=== PATIENT | female | born 1990 | race Caucasian/White ===

== ENCOUNTER 2016-10-05 21:05 | Emergency (ER) | payer OTHER, MEDICAID ==
[2016-10-05 21:09] VITALS: BP 107/64; PULSE 55; RESP 16; TEMP 98.4; O2SAT 99
--- NOTE | 2016-10-05 21:38 | EDPHY ---
H & P Time Seen by Provider: 10/05/16 21:33 HPI/ROS: CHIEF COMPLAINT: Dysuria HISTORY OF PRESENT ILLNESS: Started Thursday, not associated with vomiting or back pain or vaginal symptoms. REVIEW OF SYSTEMS: No fever or chills PAST MEDICAL HISTORY: Left foot surgery Social history: Not currently smoking General Appearance: Alert and conversant, cooperative. No CVA tenderness and no abdominal tenderness. Emergency Department course/MDM: Urine dip: Positive for leuk esterase and nitrate. Urine : Negative Macrobid discussed and consented. Does not have signs symptoms of pyelonephritis or PID. Take home pack of 2 with prescription for 12. Smoking Status: Former smoker Constitutional: Initial Vital Signs Temperature (C) 36.9 C 10/05/16 21:07 Heart Rate 55 L 10/05/16 21:07 Respiratory Rate 16 10/05/16 21:07 Blood Pressure 107/64 10/05/16 21:07 O2 Sat (%) 99 10/05/16 21:07 Allergies/Adverse Reactions: Sulfa (Sulfonamide Antibiotics) Allergy (Verified 10/05/16 21:10) Home Medications: Medication Instructions Recorded Nitrofurantoin Macrobid [Macrobid] 100 mg PO Q12 #12 cap 10/05/16 MDM/Departure - Depart Disposition: Home, Routine, Self-Care Clinical Impression: Urinary tract infection Qualifiers: Urinary tract infection type: acute cystitis Condition: Fair Instructions: Urinary Tract Infection in Women (ED) Prescriptions: Nitrofurantoin Macrobid [Macrobid] 100 mg PO Q12 #12 cap Referrals: NONE *PRIMARY CARE P,. [Primary Care Provider] - As per Instructions Loree Bah MD [Medical Doctor] - As per Instructions
[2016-10-05] MEDS ORDERED: NITROFURANTOIN 100MG PREPACK#2 BTL TAKEHOME ONE (21:48)
== END 2016-10-05 22:00 | disposition home or self-care (01) ==
DX: N39.0 Urinary tract infection, site not specified (principal); Z87.891 Personal history of nicotine dependence

== ENCOUNTER 2016-11-10 02:07 | Emergency (ER) | payer MEDICAID, OTHER ==
[2016-11-10 02:27] VITALS: BP 123/71; PULSE 73; RESP 20; TEMP 98.8; O2SAT 96
[2016-11-10] MEDS ORDERED: IBUPROFEN 200 MG TAB PO ONE (03:24)
--- NOTE | 2016-11-10 03:24 | EDPHY ---
H & P Stated Complaint: sore throat, ear pain, headache, bodyaches Time Seen by Provider: 11/10/16 03:14 HPI/ROS: Chief Complaint: Ear pain, sore throat, headache HPI: 26-year-old female presenting with 4 days of URI symptoms including sore throat, cough, body aches. Patient seen in urgent care and had a negative strep test done. Patient states that since yesterday she her pain is been increasing in her left ear. She did take some ibuprofen yesterday but had 1 episode of blood in her stool was concerned that this might be the cause of that has not taken any since. Pain is worsening her ear. Is of mild sore throat. Is able swallow but is mildly painful. Some subjective fevers or chills at home. Has not been taking any acetaminophen. Last menstrual. Was the of last month. ROS: 10 point Review of Systems is negative except as noted in the HPI. PMH: None Medications: None Allergies: Sulfa Social History: Quit smoking 3 months ago, occasional alcohol, no recreational drug use Family History: non-contributory Physical Exam: Gen: Awake, Alert, No Distress HEENT: Ears: Right ear is normal, left TM is erythematous, bulging with effusion Nose: no rhinorrhea Eyes: PERRLA, EOMI Mouth: Moist mucosa, mild diffuse erythema without edema or exudate Neck: Supple, no JVD Chest: nontender, lungs clear to auscultation Heart: S1, S2 normal, no murmur Abd: Soft, non-tender, no guarding Back: no CVA tenderness, no midline tenderness Ext: no edema, non-tender Skin: no rash Neuro: CN II-XII intact, Sensation grossly intact, Strength 5/5 in bilateral upper and lower extremities - Personal History LMP (Females 10-55): 8-14 Days Ago Current Tetanus Diphtheria and Acellular Pertussis (TDAP): Unsure - Medical/Surgical History Hx Asthma: No Hx Chronic Respiratory Disease: No Hx Diabetes: No Hx Cardiac Disease: No Hx Renal Disease: No Hx Cirrhosis: No Hx Alcoholism: No Hx HIV/AIDS: No Hx Splenectomy or Spleen Trauma: No Other PMH: Left foot surgery - Social History Smoking Status: Former smoker Constitutional: Initial Vital Signs Temperature (C) 37.1 C 11/10/16 02:26 Heart Rate 73 11/10/16 02:26 Respiratory Rate 20 11/10/16 02:26 Blood Pressure 123/71 H 11/10/16 02:26 O2 Sat (%) 96 11/10/16 02:26 O2 Delivery Mode Room Air Allergies/Adverse Reactions: Sulfa (Sulfonamide Antibiotics) Allergy (Verified 11/10/16 02:25) Home Medications: Medication Instructions Recorded Amoxicillin 500 mg PO TID 14 Days 11/10/16 Departure - Departure Disposition: Home, Routine, Self-Care Clinical Impression: Acute otitis media Condition: Good Instructions: Otitis Media (ED) Additional Instructions: You may alternate acetaminophen with ibuprofen every 4 hours as needed for fevers, chills, aches or pains. Take your full course of antibiotics. Follow up at [facility] in 3-4 days and for re-evaluation. Referrals: [facility],. [Clinic] - As per Instructions Prescriptions: Amoxicillin 500 mg PO TID 14 Days
[2016-11-10] MEDS ORDERED: AMOXICILLIN 250 MG PREPACK#4 BTL TAKEHOME ONE (03:26)
== END 2016-11-10 03:43 | disposition home or self-care (01) ==
DX: H66.92 Otitis media, unspecified, left ear (principal); Z87.891 Personal history of nicotine dependence

== ENCOUNTER → 2017-03-05 | Outpatient (CLI) | payer MEDICAID | LOC: FIMAGING 10:02 | PROVIDERS: ATTEND Registered Nurse | DX: Z36 Encounter for antenatal screening of mother (principal); Z3A.18 18 weeks gestation of pregnancy; O99.89 Other specified diseases and conditions complicating pregnancy, childbirth and the puerperium; G40.909 Epilepsy, unspecified, not intractable, without status epilepticus ==

== ENCOUNTER 2017-10-26 14:52 | Inpatient (IN) | payer MEDICAID ==
--- NOTE | 2017-10-26 15:22 | EDPHY ---
H & P Smoking Status: Former smoker Time Seen by Provider: 10/26/17 14:58 HPI/ROS: Chief complaint. Depression HPI. 27-year-old female here by EMS on M1 hold per mental health. Apparently the patient is 3 months . She has a history of bipolar illness. She has been depressed since her child was born. Last night she was found by curled up in a ball and crying and the baby was crying and not fed. Unknown whether she is breast-feeding or not. Patient does not speak to me. From old chart I see that the patient is 1 para 1. ROS Unable as the patient does not speak to me (Vladimir Bravo) Past Medical/Surgical History: Depression, bipolar illness; 1 para 1 (Vladimir Bravo) Social History: , nonsmoker, no alcohol (Vladimir Bravo) Physical Exam: General Appearance: Alert well-developed female does not speak. Vital signs are stable Eyes: Pupils equal and round no pallor or injection. ENT, Mouth: Mucous membranes are moist. Respiratory: There are no retractions, lungs are clear to auscultation. Cardiovascular: Regular rate and rhythm. Gastrointestinal: Abdomen is soft and nontender, no masses, bowel sounds normal. Neurological: Awake and alert, sensory and motor exams grossly normal. Skin: Warm and dry, no rashes. Musculoskeletal: Neck is supple. Extremities symmetrical, full range of motion. Psychiatric: Patient appears oriented, there is no agitation. (Vladimir Bravo) Constitutional: Initial Vital Signs Temperature (C) 36.9 C 10/26/17 14:52 Heart Rate 71 10/26/17 14:52 Respiratory Rate 16 10/26/17 14:52 Blood Pressure 107/60 10/26/17 14:52 O2 Sat (%) 98 10/26/17 14:52 O2 Delivery Mode Room Air Allergies/Adverse Reactions: Sulfa (Sulfonamide Antibiotics) Allergy (Verified 11/10/16 02:25) Home Medications: Medication Instructions Recorded NK [No Known Home Meds] 10/26/17 Medical Decision Making Procedures: Mental health labs are obtained (Vladimir Bravo) ED Course/Re-evaluation: 11:00 p.m.. Patient has been evaluated by mental health. They are looking for placement Family in therapist would like the patient to be given medication to help her sleep. We discussed the possibility of untoward reaction with breast feeding. The family and patient decided that the patient will no longer breast feed and they will transition the child to formula. Patient has otherwise remained stable on my shift. (Vladimir Bravo) 0530AM: Patient has been sleeping after Ativan. No acute events overnight. 0700: Patient signed over to Dr. Staley. Pending Placement. (Eduardo Bhakta) 8:30 a.m. the patient has been accepted to [address] [place] [address] Lyons. Transfer paperwork completed. (Sanket Staley) Differential Diagnosis: This appears to be depression and psychosis. I considered drugs alcohol and withdrawal symptoms as well (Vladimir Bravo) Care Turn Over: Care to Dr. Bhakta at midnight (Vladimir Bravo) - Data Points Laboratory Results: Laboratory Results 10/26/17 15:43 10/26/17 15:43 10/26/17 23:59 Urine Opiates Screen NEGATIVE (NEGATIVE) Urine Barbiturates NEGATIVE (NEGATIVE) Ur Phencyclidine Scrn NEGATIVE (NEGATIVE) Ur Amphetamine Screen NEGATIVE (NEGATIVE) U Benzodiazepines Scrn NEGATIVE (NEGATIVE) Urine Cocaine Screen NEGATIVE (NEGATIVE) U Marijuana (THC) Screen NEGATIVE (NEGATIVE) Medications Given: Discontinued Medications Diphenhydramine HCl (Benadryl) 50 mg PO EDNOW ONE Stop: 10/27/17 03:22 Last Admin: 10/27/17 03:27 Dose: 50 mg Lorazepam (Ativan) 1 mg PO EDNOW ONE Stop: 10/26/17 23:28 Last Admin: 10/26/17 23:46 Dose: 1 mg Lorazepam (Ativan) 1 mg PO ONCE ONE Stop: 10/27/17 02:29 Last Admin: 10/27/17 02:45 Dose: 1 mg Olanzapine (Olanzapine) 5 mg PO ONCE ONE Stop: 10/26/17 23:29 Last Admin: 10/26/17 23:46 Dose: Not Given Departure - Departure Disposition: [facility] IP Clinical Impression: Acute psychosis Condition: Fair Referrals: Patient,NotPresent [Unknown] - As per Instructions
[2017-10-26] MEDS ORDERED: HALOPERIDOL LACT 5 MG/ML INJ ONE (15:42)
[2017-10-26 15:51] LABS: PLATELET COUNT 238 10^3/uL (150-400)
[2017-10-26] MEDS ORDERED: LORazepam 1 MG TAB PO ONE (23:27)
[2017-10-26] MEDS ORDERED: OLANZapine 5 MG TAB PO ONE (23:28)
[2017-10-27] MEDS ORDERED: LORazepam 1 MG TAB PO ONE (02:28)
[2017-10-27] MEDS ORDERED: diphenhydrAMINE 25 MG CAP PO ONE (03:21)
[2017-10-27] MEDS ORDERED: MAGNESIUM HYDROXIDE 30 ML UDCUP PO PRN (13:57)
[2017-10-27] MEDS ORDERED: MAG HYDROX/AL HYDROX/SIMETH 30 ML UDCUP PO PRN (13:57)
[2017-10-27] MEDS ORDERED: LORazepam 0.5 MG TAB PO PRN (13:57)
--- NOTE | 2017-10-27 16:00 | BCON ---
[f rep st] BEHAVIORAL [facility] CONSULTATION INTERNAL MEDICINE CONSULTATION DATE OF CONSULTATION: 10/27/2017 REFERRING PHYSICIAN: Tristen Lyons MD REASON FOR REFERRAL: Medical clearance for inpatient [place] [facility] stay. HISTORY OF PRESENT ILLNESS: This patient was brought to the emergency department on an M1 hold by ambulance. She is 3 months and has been depressed since the of her child. She had been found by her , curled up in a ball and crying, and the baby was crying and not fed. She was evaluated in the emergency department, and admitted to inpatient Behavioral Health for further psychiatric care. She currently is without any acute complaints. She reports she is feeling a little bit better. PAST MEDICAL HISTORY: 1. Mental health issues with the diagnoses of bipolar disorder in the chart. 2. . PAST SURGICAL HISTORY: She denies any history of surgeries. MEDICATIONS: She was on no medications. SOCIAL HISTORY: She is . She is a ujnr-xm-cdph mom. She lives with her and child. She has a history of smoking, but not any longer. She has a history of occasional alcohol and marijuana use. FAMILY HISTORY: She denies any history of medical issues in her parents. REVIEW OF SYSTEMS: She thinks that she is back to her normal weight from prior to her . She is not in pain. She denies cough or dyspnea, chest pain or palpitations, nausea, vomiting, constipation, or diarrhea. She denies fevers or chills. Otherwise a 10-point review of systems is negative. PHYSICAL EXAM: VITAL SIGNS: Blood pressure is 116/73, heart rate is 94, respiratory rate is 12, oxygen saturation is 95% on room air, temperature is 36.8 degrees centigrade. Her weight is 57.2 kg for a body mass index of 19.7. GENERAL: This is a well-nourished, well-developed woman, appears her chronologic age, cooperative and in no acute distress. HEENT: Extraocular movements are intact. Pupils are equal, round, reactive to light. Mucous membranes are moist. Dentition is in good condition. She has an uncrowded airway, Mallampati class 1. HEART: There is a regular rate and rhythm with no murmurs, rubs, or gallops. LUNGS: Clear to auscultation bilaterally. ABDOMEN: Benign. EXTREMITIES: There is no cyanosis, clubbing, or edema. NEUROLOGIC: She is alert. Orientation was not checked. Cranial nerves 2-12 are grossly intact. There is no focal weakness. Sensation is intact to light touch and gait is within normal limits. LABORATORY STUDIES: Drawn in the emergency department, CBC was entirely within normal limits. Serum chemistry revealed an elevated sodium at 147, a low carbon dioxide at 19, and an anion gap of 22, otherwise renal function and electrolytes were within normal limits. Beta hCG was negative for . Toxicology screen in the serum was negative for acetaminophen or ethyl alcohol, and the urine was negative for any substances of abuse. ASSESSMENT/RECOMMENDATIONS: 1. Mental health issues pending further evaluation and management per Psychiatry, the mental health team. 2. Hyponatremia and anion gap, these could be due to reduced oral intake and mild ketosis. She does not appear dehydrated however currently or by a BUN to creatinine ratio. The abnormalities are very mild and should resolve with normal nutrition and hydration. There is no need to repeat the labs at present. I see no medical contraindications to this patient's continued stay on the inpatient Behavioral Health Unit or to any psychiatric medications or procedures. Thank you very much for including me in the care of this patient, and please do not hesitate to contact me or the hospitalist service should there be need for further medical evaluation. /[id number]/MODL MTDD
[2017-10-27] MEDS: OLANZapine DISINTEGR 10 MG TAB PO PRN ×2 (16:30→22:03)
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
[2017-10-28] MEDS ORDERED: LORazepam 2 MG/ML INJ IM PRN (10:29)
[2017-10-28] MEDS ORDERED: HALOPERIDOL LACT 5 MG/ML INJ IM PRN (10:29)
[2017-10-28] MEDS ORDERED: LORazepam 0.5 MG TAB PO PRN (10:32)
--- NOTE | 2017-10-28 10:39 | SOAPPROG ---
SOAP Progress Note Assessment/Plan: Assessment: Plan: 10/28/17 10:39 Psychosis: Remains severely psychotic. Will proceed with E-meds due to severity of sx's inc: dangerous behaviors and sexual acting out, and refusal to eat or drink adequately. Will use Abilify as a scheduled medication as she reportedly did well on this in the past and it is available in a [facility]. Will use olanzapine as a PRN and haloperidol and lorazepam as IM backups. Subjective: Pt seen, discussed with staff. Events of last night and this morning discussed at length. She remains internally focused, disorganized. Demonstrates highly sexualized behaviors such as repeatedly appearing in the milieu naked, openly masturbating in the presence of others. She is unable to consistently respond to verbal redirection and has been placed on a LOS. She is unable to enter into a discussion of her treatment or meds with me this morning. Did not sleep at all last night. Refusing to eat or drink this morning. Objective: Vital Signs Temp Pulse Resp BP Pulse Ox 36.8 C 94 14 152/78 H 90 L 10/27/17 08:20 10/27/17 12:20 10/28/17 06:00 10/28/17 06:00 10/28/17 06:00 MSE: Disheveled, lying on the floor of her room with a blanket completely covering her. Does not respond to repeated greetings and questions. Makes one unintelligible verbalization. - Time Spent With Patient Time Spent With Patient: 35" ICD10 Worksheet Patient Problems: Problems Problem Status Onset Acute psychosis Acute Schizophrenia Acute
[2017-10-28] MEDS ORDERED: ARIPiprazole 5 MG TAB PO SCH (10:45)
[2017-10-28] MEDS ORDERED: BENZTROPINE MESYLATE 1 MG TAB PO PRN (11:12)
[2017-10-28] MEDS: LORazepam 1 MG TAB PO PRN (19:50)
[2017-10-29] MEDS: LORazepam 1 MG TAB PO PRN ×2 (11:16→20:37)
[2017-10-29] MEDS: LURASIDONE HCL 40 MG TAB PO SCH (17:04)
[2017-10-29] MEDS ORDERED: LORazepam 2 MG/ML INJ IM PRN (17:05)
[2017-10-29] MEDS ORDERED: HALOPERIDOL LACT 5 MG/ML INJ IM PRN (17:05)
--- NOTE | 2017-10-29 17:11 | SOAPPROG ---
SOAP Progress Note Assessment/Plan: Assessment: Plan: 10/28/17 10:39 Psychosis: Remains severely psychotic. Will proceed with E-meds due to severity of sx's inc: dangerous behaviors and sexual acting out, and refusal to eat or drink adequately. Will use Abilify as a scheduled medication as she reportedly did well on this in the past and it is available in a BRAXTON. Will use olanzapine as a PRN and haloperidol and lorazepam as IM backups. 10/29/17 17:11 Psychosis: Much improved. CCM. Will place on STC due to severity of illness and likelihood of waxing and waning sx's. Will renew E-meds for another 24 hours until pt demonstrates consistently stable behaviors. Subjective: Pt seen, discussed with staff. Reports feeling "so much better." States, "I love you. You gave me the medications that made me feel better. I was suffering so much." She agrees to take Latuda orally now. Behaviors are much improved with no disrobing. Slept approx. 12 hours last night. Eating and drinking better today. Objective: Vital Signs Temp Pulse Resp BP Pulse Ox 36.8 C 84 16 91/59 L 97 10/29/17 06:00 10/29/17 06:00 10/29/17 06:00 10/29/17 06:00 10/29/17 06:00 10/28/17 10/29/17 10/30/17 05:59 05:59 05:59 Intake Total 1200 Balance 1200 MSE: Calm, coop. Interacts appropriately. Affect is bright, stable. Mood is "much better." TP is generally linear. TC reveals no mention of paranoid thoughts, no internal preoccupation. - Time Spent With Patient Time Spent With Patient: 25" ICD10 Worksheet Patient Problems: Problems Problem Status Onset Acute psychosis Acute Schizophrenia Acute
--- NOTE | 2017-10-30 10:51 | PDMN ---
Medical Necessity Medical necessity: Reviewed case with Dr. Gillespie at [employer]. Authorized thru weekend with review on Thursday.
[2017-10-30] MEDS: LORazepam 1 MG TAB PO PRN (14:41)
[2017-10-30] MEDS: LURASIDONE HCL 40 MG TAB PO SCH (17:31)
--- NOTE | 2017-10-30 17:42 | SOAPPROG ---
SOAP Progress Note Assessment/Plan: Assessment: Per Dr. Lyons's note: 10/28/17 10:39 Psychosis: Remains severely psychotic. Will proceed with E-meds due to severity of sx's inc: dangerous behaviors and sexual acting out, and refusal to eat or drink adequately. Will use Abilify as a scheduled medication as she reportedly did well on this in the past and it is available in a BRAXTON. Will use olanzapine as a PRN and haloperidol and lorazepam as IM backups. 10/29/17 17:11 Psychosis: Much improved. CCM. Will place on STC due to severity of illness and likelihood of waxing and waning sx's. Will renew E-meds for another 24 hours until pt demonstrates consistently stable behaviors. Plan: 10/30/17 17:39 1. Patient is much improved. Remains disorganized but no inappropriate or dangerous behaviors. 2. Placed on STC. 3. Patient taking medication voluntarily. 4. Will d/c ISB-II and place on ISB-I as precaution. Subjective: Met with patient, reviewed chart and d/w staff. Patient is lying in bed fully clothes with blanket pulled up to her chin. She tells MD that she is feeling "great" today and that she had a "great" visit with her MOC. MOC asked how much longer MD expects patient to remain in hospital. MD advised MOC that patient will certainly be here through the weekend and will reassess anticipated discharge on Thursday AM. Objective: Vital Signs Temp Pulse Resp BP Pulse Ox 36.2 C 70 14 110/55 L 94 10/30/17 06:00 10/30/17 06:00 10/30/17 06:00 10/30/17 06:00 10/30/17 06:00 10/29/17 10/30/17 10/31/17 05:59 05:59 05:59 Intake Total 1720 1200 Balance 1720 1200 MSE: Affect: Stable Mood: "Great" TP: Disorganized, but more coherent TC: Denies any SI/HI, no evidence of hallucinations or delusions Insight/Judgment: Improved, but poor - Time Spent With Patient Time Spent With Patient: 20" - Pending Discharge Pending Discharge Within 24 Hours: No Pending Discharge Within 48 Hours: No ICD10 Worksheet Patient Problems: Problems Problem Status Onset Acute psychosis Acute Schizophrenia Acute
--- NOTE | 2017-10-31 15:21 | SOAPPROG ---
SOAP Progress Note Assessment/Plan: Assessment: Per Dr. Lyons's note: 10/28/17 10:39 Psychosis: Remains severely psychotic. Will proceed with E-meds due to severity of sx's inc: dangerous behaviors and sexual acting out, and refusal to eat or drink adequately. Will use Abilify as a scheduled medication as she reportedly did well on this in the past and it is available in a BRAXTON. Will use olanzapine as a PRN and haloperidol and lorazepam as IM backups. 10/29/17 17:11 Psychosis: Much improved. CCM. Will place on STC due to severity of illness and likelihood of waxing and waning sx's. Will renew E-meds for another 24 hours until pt demonstrates consistently stable behaviors. Plan: 10/30/17 17:39 1. Patient is much improved. Remains disorganized but no inappropriate or dangerous behaviors. 2. Placed on STC. 3. Patient taking medication voluntarily. 4. Will d/c ISB-II and place on ISB-I as precaution. 10/31/17 15:17 1. Patient continues to show improvement, no acute psychosis, more coherent and organized. 2. Still on STC. 3. Ate 100% of breakfast and drank plenty of fluids. Subjective: Met with patient, reviewed chart and d/w staff. Patient is more coherent and organized today, her thought process is much more logical than past several days. She told that she is planning to move to [place] with her family at end of November. She will likely need some transitional appointments after d/c to carry her over until she has providers in her new location. She is worried about cost of Latuda, but explained that there is a generic form, but it depends on her insurance how much it will cost. She has been on the drug in past , but doesn't remember how much it cost. Objective: Vital Signs Temp Pulse Resp BP Pulse Ox 36.9 C 93 14 98/64 L 94 10/31/17 06:00 10/31/17 06:00 10/31/17 06:00 10/31/17 06:00 10/31/17 06:00 10/30/17 10/31/17 11/01/17 05:59 05:59 05:59 Intake Total 1720 1680 Balance 1720 1680 MSE: Affect: Euthymic Mood: "OK" TP: Linear, goal-directed TC: Denies any SI/ HI, no psychosis Insight/Judgment: Fair - Time Spent With Patient Time Spent With Patient: 15" - Pending Discharge Pending Discharge Within 24 Hours: No Pending Discharge Within 48 Hours: No ICD10 Worksheet Patient Problems: Problems Problem Status Onset Acute psychosis Acute Schizophrenia Acute
[2017-10-31] MEDS: LURASIDONE HCL 40 MG TAB PO SCH (17:28)
[2017-10-31] MEDS: LORazepam 1 MG TAB PO PRN (23:14)
--- NOTE | 2017-11-01 17:19 | SOAPPROG ---
SOAP Progress Note Assessment/Plan: Assessment: Per Dr. Lyons's note: 10/28/17 10:39 Psychosis: Remains severely psychotic. Will proceed with E-meds due to severity of sx's inc: dangerous behaviors and sexual acting out, and refusal to eat or drink adequately. Will use Abilify as a scheduled medication as she reportedly did well on this in the past and it is available in a BRAXTON. Will use olanzapine as a PRN and haloperidol and lorazepam as IM backups. 10/29/17 17:11 Psychosis: Much improved. CCM. Will place on STC due to severity of illness and likelihood of waxing and waning sx's. Will renew E-meds for another 24 hours until pt demonstrates consistently stable behaviors. Plan: 10/30/17 17:39 1. Patient is much improved. Remains disorganized but no inappropriate or dangerous behaviors. 2. Placed on STC. 3. Patient taking medication voluntarily. 4. Will d/c ISB-II and place on ISB-I as precaution. 10/31/17 15:17 1. Patient continues to show improvement, no acute psychosis, more coherent and organized. 2. Still on STC. 3. Ate 100% of breakfast and drank plenty of fluids. 11/01/17 17:11 1. Patient feels she is at her baseline. She denies any SI/HI and there is no evidence of psychosis. 2. Patient had questions about safety and risks associated with while taking Latuda. MD did not recommend it, and staff provided patient with information handout regarding while taking antipsychotic meds. When MD met with patient, she said she had decided against and decided to convert to formula. Patient discussed her decision with and parents during their visit today, and they agreed with her. 3. Patient told MD that she doesn't want to pay for Latuda. She took it in past , and says it cost her family "too much" and that she couldn't afford to pay for it again. MD recommended continuing on this medication since it has demonstrated effectiveness until she has been stable for longer period of time and then discussing transitioning to a more affordable antipsychotic option with her outpatient provider. The other option would be to go back to Abilify which she took initially during this hospitalization. MD advised that Abilify was generic and likely to be less expensive, but could not make any guarantees without conferring with her insurance provider. Patient said she would consider her options and discuss with Dr. Lyons tomorrow. 4. Eating, drinking and sleeping without problems. Subjective: Met with patient, reviewed chart and d/w staff. Patient met with family today and decided to stop d/t concerns about safety of Latuda in breast milk. She told MD today that she can't afford Latuda. MD advised that Abilify is likely to be less expensive since it is generic, but MD is not sure whether Abilify will be as effective as Latuda since she hasn't taken it before. MD suggested patient could be switched to new medication, but would need to be under close observation to determine if it had the same benefit as Latuda. Objective: Vital Signs Temp Pulse Resp BP Pulse Ox 36.6 C 82 16 98/56 L 95 11/01/17 06:00 11/01/17 06:00 11/01/17 06:00 11/01/17 06:00 11/01/17 06:00 10/31/17 11/01/17 11/02/17 05:59 05:59 05:59 Intake Total 1680 240 Balance 1680 240 MSE: Affect: Flat Mood: "Good" TP: Linear, goal-directed TC: Denies any SI/HI , no AH/VH Insight/Judgment: Fair - Time Spent With Patient Time Spent With Patient: 20" - Pending Discharge Pending Discharge Within 24 Hours: No Pending Discharge Within 48 Hours: No ICD10 Worksheet Patient Problems: Problems Problem Status Onset Acute psychosis Acute Schizophrenia Acute
[2017-11-01] MEDS: LURASIDONE HCL 40 MG TAB PO SCH (17:38)
--- NOTE | 2017-11-02 14:00 | SOAPPROG ---
SOAP Progress Note Assessment/Plan: Assessment: Plan: 10/28/17 10:39 Psychosis: Remains severely psychotic. Will proceed with E-meds due to severity of sx's inc: dangerous behaviors and sexual acting out, and refusal to eat or drink adequately. Will use Abilify as a scheduled medication as she reportedly did well on this in the past and it is available in a BRAXTON. Will use olanzapine as a PRN and haloperidol and lorazepam as IM backups. 10/29/17 17:11 Psychosis: Much improved. CCM. Will place on STC due to severity of illness and likelihood of waxing and waning sx's. Will renew E-meds for another 24 hours until pt demonstrates consistently stable behaviors. 11/02/17 14:05 Psychosis: Much improved over weekend. Will [facility], convene family meeting to discuss d/c. Subjective: Pt seen, discussed with staff and Dr. Cain, chart reviewed. She is much improved overall since last seen. The psychosis seems to have abated completely. She is linear and organized. Her behaviors have stabilized. We discussed the need for continued treatment with Latuda even if it means she cannot breast feed. She is "sad" about this but states, "I'll just have to make up for it by excelling in other ways." CC is in contact with pt's and he asks whether pt can be around the baby. Objective: Vital Signs Temp Pulse Resp BP Pulse Ox 36.1 C 58 L 14 96/62 L 96 11/02/17 06:00 11/02/17 06:00 11/02/17 06:00 11/02/17 06:00 11/02/17 06:00 11/01/17 11/02/17 11/03/17 05:59 05:59 05:59 Intake Total 240 240 Balance 240 240 MSE: Well-groomed, calm and coop. Affect is euthymic, stable, approp. Mood is "good." TP is generally linear, though she is either blocked or internally preoccupied at times. She also struggles at times to give goal-directed answers to questions. An example is when I ask if she believes she is well enough to leave the hospital, she talks about breast feeding and parenting and going back to school, but after numerous attempts, inc: telling her to answer yes or no, she cannot. She states, "It's complicated." Her TC reveals no overt psychosis. She is A&Ox4. She denies SI/HI/. - Time Spent With Patient Time Spent With Patient: 25" ICD10 Worksheet Patient Problems: Problems Problem Status Onset Acute psychosis Acute Schizophrenia Acute
[2017-11-02] MEDS: LURASIDONE HCL 40 MG TAB PO SCH (19:12)
--- NOTE | 2017-11-03 16:37 | SOAPPROG ---
SOAP Progress Note Assessment/Plan: Assessment: Plan: 10/28/17 10:39 Psychosis: Remains severely psychotic. Will proceed with E-meds due to severity of sx's inc: dangerous behaviors and sexual acting out, and refusal to eat or drink adequately. Will use Abilify as a scheduled medication as she reportedly did well on this in the past and it is available in a BRAXTON. Will use olanzapine as a PRN and haloperidol and lorazepam as IM backups. 10/29/17 17:11 Psychosis: Much improved. CCM. Will place on STC due to severity of illness and likelihood of waxing and waning sx's. Will renew E-meds for another 24 hours until pt demonstrates consistently stable behaviors. 11/02/17 14:05 Psychosis: Much improved over weekend. Will [facility], convene family meeting to discuss d/c. 11/03/17 16:38 Psychosis: Difficult and atypical case. She genuinely looked good yesterday and several hours later decompensated, appearing manic and psychotic again. She refused the Latuda last night, so will provide E-med backup if she refuses tonight. She is sick enough that further acute decompensation would certainly lead to intrusive, sexualized and dangerous behaviors as we saw several days ago. Subjective: Pt seen, discussed with staff. Did very well yesterday in the morning. By midday when she was being d/c'd, she decompensated and became increasingly psychotic. She was reported to be unable to organize her thoughts or communicate effectively, singing inappropriately and RIS. Today she is out in the milieu making animal noises and talking with a [address] "vampire voice. " She is posing and dancing in the halls stating, "I'm a vampire ballerina." She is noted to be RIS almost constantly. Unable to discuss treatment or d/c plan with me. Case reviewed with Dr. Gillespie who questions whether there is some kind of hormonal issue. She refused Latuda last night telling me, "I had no idea what it was for." I reminded her that we have discussed that at length which she denied. She did not sleep at all last night. Objective: Vital Signs Temp Pulse Resp BP Pulse Ox 36.1 C 58 L 14 96/62 L 96 11/02/17 06:00 11/02/17 06:00 11/02/17 06:00 11/02/17 06:00 11/02/17 06:00 11/02/17 11/03/17 11/04/17 05:59 05:59 05:59 Intake Total 240 300 Balance 240 300 MSE: Agitated, dancing, inapprop. Affect is labile, elevated. Mood is "great. " TP disorganized, tangential. TC reveals bizarre thoughts, RIS. - Time Spent With Patient Time Spent With Patient: 25" ICD10 Worksheet Patient Problems: Problems Problem Status Onset Acute psychosis Acute Schizophrenia Acute
[2017-11-03] MEDS: LURASIDONE HCL 40 MG TAB PO SCH ×2 (16:56→16:59)
[2017-11-03] MEDS ORDERED: HALOPERIDOL LACT 5 MG/ML INJ IM PRN (17:00)
[2017-11-03] MEDS: LURASIDONE HCL 20 MG TAB PO SCH (19:15)
[2017-11-03] MEDS: LORazepam 1 MG TAB PO PRN (20:43)
[2017-11-03] MEDS: OLANZapine DISINTEGR 10 MG TAB PO PRN (21:10)
--- NOTE | 2017-11-04 14:18 | SOAPPROG ---
SOAP Progress Note Assessment/Plan: Assessment: Plan: 10/28/17 10:39 Psychosis: Remains severely psychotic. Will proceed with E-meds due to severity of sx's inc: dangerous behaviors and sexual acting out, and refusal to eat or drink adequately. Will use Abilify as a scheduled medication as she reportedly did well on this in the past and it is available in a BRAXTON. Will use olanzapine as a PRN and haloperidol and lorazepam as IM backups. 10/29/17 17:11 Psychosis: Much improved. CCM. Will place on STC due to severity of illness and likelihood of waxing and waning sx's. Will renew E-meds for another 24 hours until pt demonstrates consistently stable behaviors. 11/02/17 14:05 Psychosis: Much improved over weekend. Will [facility], convene family meeting to discuss d/c. 11/03/17 16:38 Psychosis: Difficult and atypical case. She genuinely looked good yesterday and several hours later decompensated, appearing manic and psychotic again. She refused the Latuda last night, so will provide E-med backup if she refuses tonight. She is sick enough that further acute decompensation would certainly lead to intrusive, sexualized and dangerous behaviors as we saw several days ago. 11/04/17 14:18 Psychosis: Calmer with meds. CCM. Will renew E-meds due to ongoing severity of illness and necessity of medication compliance. Subjective: Pt seen, discussed with staff. Asked for PRN lorazepam and Zyprexa this morning and is sleepy. She did take the Latuda last night when informed of the E-med backup. She refused to see her , however. She remains generally agitated, delusional, grandiose, bizarre and seems to be frequently responding to internal stimuli. She agrees to continue the Latuda with me today. Objective: Vital Signs Temp Pulse Resp BP Pulse Ox 36.1 C 58 L 14 96/62 L 96 11/02/17 06:00 11/02/17 06:00 11/02/17 06:00 11/02/17 06:00 11/02/17 06:00 11/03/17 11/04/17 11/05/17 05:59 05:59 05:59 Intake Total 300 200 Balance 300 200 MSE: Disheveled, guarded. Affect is blunted, sleepy. Mood is "fine." TP is disorganized, abbreviated. TC reveals grandiose and bizarre thoughts, RIS/AH's. - Time Spent With Patient Time Spent With Patient: 15" ICD10 Worksheet Patient Problems: Problems Problem Status Onset Acute psychosis Acute Schizophrenia Acute
[2017-11-04] MEDS: LURASIDONE HCL 20 MG TAB PO SCH (17:38)
--- NOTE | 2017-11-05 16:24 | SOAPPROG ---
SOAP Progress Note Assessment/Plan: Assessment: Plan: 10/28/17 10:39 Psychosis: Remains severely psychotic. Will proceed with E-meds due to severity of sx's inc: dangerous behaviors and sexual acting out, and refusal to eat or drink adequately. Will use Abilify as a scheduled medication as she reportedly did well on this in the past and it is available in a BRAXTON. Will use olanzapine as a PRN and haloperidol and lorazepam as IM backups. 10/29/17 17:11 Psychosis: Much improved. CCM. Will place on STC due to severity of illness and likelihood of waxing and waning sx's. Will renew E-meds for another 24 hours until pt demonstrates consistently stable behaviors. 11/02/17 14:05 Psychosis: Much improved over weekend. Will [facility], convene family meeting to discuss d/c. 11/03/17 16:38 Psychosis: Difficult and atypical case. She genuinely looked good yesterday and several hours later decompensated, appearing manic and psychotic again. She refused the Latuda last night, so will provide E-med backup if she refuses tonight. She is sick enough that further acute decompensation would certainly lead to intrusive, sexualized and dangerous behaviors as we saw several days ago. 11/04/17 14:18 Psychosis: Calmer with meds. CCM. Will renew E-meds due to ongoing severity of illness and necessity of medication compliance. 11/05/17 16:27 Psychosis: Remains disorganized, delusional. Will [facility]. Day #2 on increased dose of Latuda. Subjective: Pt seen, discussed with staff. Up in the milieu today. I talked with her in the day room. She struggled to follow conversation with disorganized thoughts, easily distracted. Cannot give goal-directed answers to most questions. States several times that she is "very spiritual." Staff reports pt has been irritable, yelling at staff and insulting them, demanding. Objective: Vital Signs Temp Pulse Resp BP Pulse Ox 36.7 C 82 16 86/52 L 95 11/05/17 06:00 11/05/17 06:00 11/05/17 06:00 11/05/17 06:00 11/05/17 06:00 11/04/17 11/05/17 11/06/17 05:59 05:59 05:59 Intake Total 200 240 Balance 200 240 MSE: Calm, coop. Affect is elevated, expansive. Mood is "just great thanks." TP tangential. TC reveals grandiose and episcopalian thoughts, poor reality testing. Poor insight and judgment. - Time Spent With Patient Time Spent With Patient: 25" ICD10 Worksheet Patient Problems: Problems Problem Status Onset Acute psychosis Acute Schizophrenia Acute
[2017-11-05] MEDS: LURASIDONE HCL 20 MG TAB PO SCH (17:49)
[2017-11-05] MEDS: OLANZapine DISINTEGR 10 MG TAB PO PRN (19:53)
--- NOTE | 2017-11-06 15:49 | SOAPPROG ---
SOAP Progress Note Assessment/Plan: Assessment: Plan: 10/28/17 10:39 Psychosis: Remains severely psychotic. Will proceed with E-meds due to severity of sx's inc: dangerous behaviors and sexual acting out, and refusal to eat or drink adequately. Will use Abilify as a scheduled medication as she reportedly did well on this in the past and it is available in a BRAXTON. Will use olanzapine as a PRN and haloperidol and lorazepam as IM backups. 10/29/17 17:11 Psychosis: Much improved. CCM. Will place on STC due to severity of illness and likelihood of waxing and waning sx's. Will renew E-meds for another 24 hours until pt demonstrates consistently stable behaviors. 11/02/17 14:05 Psychosis: Much improved over weekend. Will [facility], convene family meeting to discuss d/c. 11/03/17 16:38 Psychosis: Difficult and atypical case. She genuinely looked good yesterday and several hours later decompensated, appearing manic and psychotic again. She refused the Latuda last night, so will provide E-med backup if she refuses tonight. She is sick enough that further acute decompensation would certainly lead to intrusive, sexualized and dangerous behaviors as we saw several days ago. 11/04/17 14:18 Psychosis: Calmer with meds. CCM. Will renew E-meds due to ongoing severity of illness and necessity of medication compliance. 11/05/17 16:27 Psychosis: Remains disorganized, delusional. Will [facility]. Day #2 on increased dose of Latuda. 11/06/17 15:54 Psychosis: Disorganization and psychosis persists. Will [facility], monitor. Subjective: Pt seen, discussed with staff. She is participating in groups today. Wrote a letter to myself and the CC stating she needed to be d/c'd because she has been in the hospital too long. I attempted to talk to her about this but she is unable to give goal-directed answers to questions such as, "Do you think you are able to care for yourself at home?" or "Do you think you can care for your baby?" I spoke to pt's mother, Rosalinda, who is also concerned that she is not close to baseline at this point. Pt remains hesitant to take PO meds, but has been compliant. She has actually requested Zyprexa PRN several times as well. She states, "That really helps me." When we first sat down to talk, she abruptly asked me, "Are you the bearer of bad news?" When I asked her what bad news she was concerned about, she stated, "I thought something bad must have happened to my baby." Objective: Vital Signs Temp Pulse Resp BP Pulse Ox 36.8 C 65 14 89/56 L 94 11/06/17 06:00 11/06/17 06:00 11/06/17 06:00 11/06/17 06:00 11/06/17 06:00 11/05/17 11/06/17 11/07/17 05:59 05:59 05:59 Intake Total 240 240 Balance 240 240 MSE: Generally calm, though guarded. Affect is blunted, stable. Mood is "OK. " TP is tangential with frequent blocking. TC reveals paranoid thoughts, possible RIS. - Time Spent With Patient Time Spent With Patient: 25" ICD10 Worksheet Patient Problems: Problems Problem Status Onset Acute psychosis Acute Schizophrenia Acute
[2017-11-06] MEDS: LURASIDONE HCL 20 MG TAB PO SCH (17:31)
[2017-11-06] MEDS: LORazepam 1 MG TAB PO PRN (19:34)
--- NOTE | 2017-11-07 14:25 | SOAPPROG ---
SOAP Progress Note Assessment/Plan: Assessment: Per Dr. Lyons's note: 11/02/17 14:05 Psychosis: Much improved over weekend. Will [facility], convene family meeting to discuss d/c. 11/03/17 16:38 Psychosis: Difficult and atypical case. She genuinely looked good yesterday and several hours later decompensated, appearing manic and psychotic again. She refused the Latuda last night, so will provide E-med backup if she refuses tonight. She is sick enough that further acute decompensation would certainly lead to intrusive, sexualized and dangerous behaviors as we saw several days ago. 11/04/17 14:18 Psychosis: Calmer with meds. [facility]. Will renew E-meds due to ongoing severity of illness and necessity of medication compliance. 11/05/17 16:27 Psychosis: Remains disorganized, delusional. Will [facility]. Day #2 on increased dose of Latuda. 11/06/17 15:54 Psychosis: Disorganization and psychosis persists. Will [facility], monitor. Plan: 11/07/17 14:09 1. Patient very irritable and abrupt with MD. She denies any SI/HI, no AH/VH. 2. Patient complains of "prickling" sensation in lower back after she takes Latuda. She notes sensation "goes away" shortly after she takes her med. She wants to know if there is a "med" she can take for "this side effect." MD attempted to explain that this was not any known SE that MD is aware of, and the fact that it "goes away" as she described makes it unlikely that it is med related. Patient is looking away from MD and appears not to be listening to MD' s response. She abruptly stops MD and says, "So that's a no, then, I don't need to hear any more." 3. Patient says, "I want to take the Latuda," and agrees to continue her current treatment. 4. On ST 5. Patient had one episode of low BP this AM (77/44) followed by an elevated BP (151/59). She denies any symptoms associated with high or low BP. 6. Eating 100% of meals, drinking plenty of fluids and slept 8 hrs last night. Subjective: Met with patient, reviewed chart and d/w staff. Patient very irritable and abrupt with MD. She denies any SI/HI, no AH/VH. Patient complains of "prickling " sensation in lower back after she takes Latuda. She notes sensation "goes away " shortly after she takes her med. She wants to know if there is a "med" she can take for "this side effect." MD attempted to explain that this was not any known SE that MD is aware of, and the fact that it "goes away" as she described makes it unlikely that it is med related. Patient is looking away from MD and appears not to be listening to MD's response. She abruptly stops MD and says, "So that's a no, then, I don't need to hear any more." Patient says, "I want to take the Latuda," and agrees to continue her current treatment. Later, patient accosted several different staff, including MHT, RN and CC, making demands in very irritable manner. Objective: Vital Signs Temp Pulse Resp BP Pulse Ox 36.6 C 64 16 159/59 H 91 L 11/07/17 06:00 11/07/17 09:00 11/07/17 09:00 11/07/17 09:00 11/07/17 09:00 11/06/17 11/07/17 11/08/17 05:59 05:59 05:59 Intake Total 240 1000 Balance 240 1000 MSE: Affect: Irritable Mood: "Fine" TP: Linear, goal-directed TC: Denies SI/ HI, no AH/VH Insight/Judgment: Impaired - Time Spent With Patient Time Spent With Patient: 20" - Pending Discharge Pending Discharge Within 24 Hours: No Pending Discharge Within 48 Hours: No ICD10 Worksheet Patient Problems: Problems Problem Status Onset Acute psychosis Acute Schizophrenia Acute
[2017-11-07] MEDS: LURASIDONE HCL 20 MG TAB PO SCH (18:07)
[2017-11-07] MEDS: OLANZapine DISINTEGR 10 MG TAB PO PRN (21:54)
--- NOTE | 2017-11-08 12:56 | SOAPPROG ---
SOAP Progress Note Assessment/Plan: Assessment: Per Dr. Lyons's note: 11/02/17 14:05 Psychosis: Much improved over weekend. Will [facility], convene family meeting to discuss d/c. 11/03/17 16:38 Psychosis: Difficult and atypical case. She genuinely looked good yesterday and several hours later decompensated, appearing manic and psychotic again. She refused the Latuda last night, so will provide E-med backup if she refuses tonight. She is sick enough that further acute decompensation would certainly lead to intrusive, sexualized and dangerous behaviors as we saw several days ago. 11/04/17 14:18 Psychosis: Calmer with meds. [facility]. Will renew E-meds due to ongoing severity of illness and necessity of medication compliance. 11/05/17 16:27 Psychosis: Remains disorganized, delusional. Will [facility]. Day #2 on increased dose of Latuda. 11/06/17 15:54 Psychosis: Disorganization and psychosis persists. Will [facility], monitor. Plan: 11/07/17 14:09 1. Patient very irritable and abrupt with MD. She denies any SI/HI, no AH/VH. 2. Patient complains of "prickling" sensation in lower back after she takes Latuda. She notes sensation "goes away" shortly after she takes her med. She wants to know if there is a "med" she can take for "this side effect." MD attempted to explain that this was not any known SE that [place] is aware of, and the fact that it "goes away" as she described makes it unlikely that it is med related. Patient is looking away from MD and appears not to be listening to MD' s response. She abruptly stops MD and says, "So that's a no, then, I don't need to hear any more." 3. Patient says, "I want to take the Latuda," and agrees to continue her current treatment. 4. On ST 5. Patient had one episode of low BP this AM (77/44) followed by an elevated BP (151/59). She denies any symptoms associated with high or low BP. 6. Eating 100% of meals, drinking plenty of fluids and slept 8 hrs last night. 11/08/17 12:51 1. Patient told CC she is feeling "great." 2. Patient interacting appropriately with staff and peers. 3. Reported AH/VH last night and took Zyprexa PRN, but denies any psychotic sxs today. 4. No SI/HI. 5. Patient denies any SE's from Latuda today. No evidence of EPS, no stiffness, rigidity or slowing. No abnormal involuntary movements. Subjective: Met with patient, reviewed chart and d/w staff. Staff report patient has been more cooperative and pleasant, no signs of irritability. Patient told CC, "I'm great...I had a great visit with my family." When MD attempted to interview patient, she walked away and said, "I'm getting some ice and then I want to go back to my room." When MD asked patient if he could talk to her, she did not turn around and kept on walking toward ice machine. Later, MD attempted to talk to patient again, and she ignored him. RN reports patient denied any hallucinations and paranoia today, though she told RN last night she was having auditory and visual hallucinations and requested PRN Zyprexa. Patient slept 7.5 hrs last night and ate 100% of breakfast. She attended groups and was smiling, pleasant and appropriate according to group instructor. Objective: Vital Signs Temp Pulse Resp BP Pulse Ox 36.5 C 50 L 16 84/46 L 97 11/08/17 06:00 11/08/17 06:00 11/08/17 06:00 11/08/17 06:00 11/08/17 06:00 11/07/17 11/08/17 11/09/17 05:59 05:59 05:59 Intake Total 1000 1460 Balance 1000 1460 MSE: Affect: Bright, smiling Mood: "Great" TP: Linear TC: Reported AH/VH last night, but denied all psychotic sxs this AM, denies any SI/HI Insight/ Judgment: Poor - Time Spent With Patient Time Spent With Patient: 15" - Pending Discharge Pending Discharge Within 24 Hours: No Pending Discharge Within 48 Hours: No ICD10 Worksheet Patient Problems: Problems Problem Status Onset Acute psychosis Acute Schizophrenia Acute
[2017-11-08] MEDS: LURASIDONE HCL 20 MG TAB PO SCH (17:16)
[2017-11-09] MEDS ORDERED: LURASIDONE HCL 20 MG TAB PO SCH (10:46)
--- NOTE | 2017-11-09 17:28 | SOAPPROG ---
SOAP Progress Note Assessment/Plan: Assessment: Plan: 10/28/17 10:39 Psychosis: Remains severely psychotic. Will proceed with E-meds due to severity of sx's inc: dangerous behaviors and sexual acting out, and refusal to eat or drink adequately. Will use Abilify as a scheduled medication as she reportedly did well on this in the past and it is available in a [facility]. Will use olanzapine as a PRN and haloperidol and lorazepam as IM backups. 10/29/17 17:11 Psychosis: Much improved. [facility]. Will place on STC due to severity of illness and likelihood of waxing and waning sx's. Will renew E-meds for another 24 hours until pt demonstrates consistently stable behaviors. 11/02/17 14:05 Psychosis: Much improved over weekend. Will [facility], convene family meeting to discuss d/c. 11/03/17 16:38 Psychosis: Difficult and atypical case. She genuinely looked good yesterday and several hours later decompensated, appearing manic and psychotic again. She refused the Latuda last night, so will provide E-med backup if she refuses tonight. She is sick enough that further acute decompensation would certainly lead to intrusive, sexualized and dangerous behaviors as we saw several days ago. 11/04/17 14:18 Psychosis: Calmer with meds. [facility]. Will renew E-meds due to ongoing severity of illness and necessity of medication compliance. 11/05/17 16:27 Psychosis: Remains disorganized, delusional. Will [facility]. Day #2 on increased dose of Latuda. 11/06/17 15:54 Psychosis: Disorganization and psychosis persists. Will [facility], monitor. 11/09/17 17:29 Psychosis: Much improved. Will convene family meeting tomorrow to discuss d/c plan. Subjective: Pt seen, discussed with staff, chart reviewed. She appears quite clear today. Able to interact normally. We spent 25" discussing treatment and d/c plans. She states she is anxious about her ability to care for herself and her child. She states, "I'm getting more competent every day. I'm starting to get my sea legs." She was reported to be responding to internal stimuli over the weekend. I discussed this with her and she stated, "I mostly have visual images. They' re dreamlike images that lead me into sleep." These images occur only as she is falling asleep and are rarely accompanied by auditory experiences. She states she had one of these on the night of 11/07/17 when she saw, "a yellow horse flying through the air." She states she does hear "a negative narrator in my head" often. She describes this as "part of my own consciousness but I don 't have control over it." Objective: Vital Signs Temp Pulse Resp BP Pulse Ox 36.6 C 61 14 110/63 96 11/09/17 06:00 11/09/17 06:00 11/09/17 06:00 11/09/17 06:00 11/09/17 06:00 11/08/17 11/09/17 11/10/17 05:59 05:59 05:59 Intake Total 3589 044 4403 Balance 9804 770 6633 MSE: Well-groomed, pleasant and coop. Affect is euthymic, smiling, stable, approp. Mood is "pretty good." TP is generally linear. TC reveals no current evidence of psychosis. She is A&Ox4, sensorium is clear. She denies SI/HI/. - Time Spent With Patient Time Spent With Patient: 25" ICD10 Worksheet Patient Problems: Problems Problem Status Onset Acute psychosis Acute Schizophrenia Acute
[2017-11-09] MEDS: LURASIDONE HCL 20 MG TAB PO SCH (18:16)
--- NOTE | 2017-11-10 15:11 | SOAPPROG ---
SOAP Progress Note Assessment/Plan: Assessment: Plan: 10/28/17 10:39 Psychosis: Remains severely psychotic. Will proceed with E-meds due to severity of sx's inc: dangerous behaviors and sexual acting out, and refusal to eat or drink adequately. Will use Abilify as a scheduled medication as she reportedly did well on this in the past and it is available in a [facility]. Will use olanzapine as a PRN and haloperidol and lorazepam as IM backups. 10/29/17 17:11 Psychosis: Much improved. [facility]. Will place on STC due to severity of illness and likelihood of waxing and waning sx's. Will renew E-meds for another 24 hours until pt demonstrates consistently stable behaviors. 11/02/17 14:05 Psychosis: Much improved over weekend. Will [facility], convene family meeting to discuss d/c. 11/03/17 16:38 Psychosis: Difficult and atypical case. She genuinely looked good yesterday and several hours later decompensated, appearing manic and psychotic again. She refused the Latuda last night, so will provide E-med backup if she refuses tonight. She is sick enough that further acute decompensation would certainly lead to intrusive, sexualized and dangerous behaviors as we saw several days ago. 11/04/17 14:18 Psychosis: Calmer with meds. [facility]. Will renew E-meds due to ongoing severity of illness and necessity of medication compliance. 11/05/17 16:27 Psychosis: Remains disorganized, delusional. Will [facility]. Day #2 on increased dose of Latuda. 11/06/17 15:54 Psychosis: Disorganization and psychosis persists. Will [facility], monitor. 11/09/17 17:29 Psychosis: Much improved. Will convene family meeting tomorrow to discuss d/c plan. 11/10/17 15:35 Psychosis: Continued improvement. Will [facility], plan for d/c tomorrow if all is well. Subjective: Pt seen, discussed with staff. Met with pt individually and with father, and CC in family meeting. Discussed d/c plan and all are in agreement that she is close to being ready. Will return to her home with her and her mother has taken FMLA to continue to help with the baby. They still plan to move to [place] on December 04, but are agreeable to close observation between now and then. Pt will return to see me in my outpatient office for monitoring in the interim. Objective: Vital Signs Temp Pulse Resp BP Pulse Ox 36.5 C 66 16 85/57 L 96 11/10/17 06:00 11/10/17 06:00 11/10/17 06:00 11/10/17 06:00 11/10/17 06:00 11/09/17 11/10/17 11/11/17 05:59 05:59 05:59 Intake Total 728 1375 Balance 728 1375 MSE: Calm, coop. Appropriately conversant. Affect is euthymic, stable, approp. Mood is "good." TP generally linear. TC reveals no evidence of psychosis inc: no AH's or paranoia. - Time Spent With Patient Time Spent With Patient: 35" ICD10 Worksheet Patient Problems: Problems Problem Status Onset Acute psychosis Acute Schizophrenia Acute
[2017-11-10] MEDS: LURASIDONE HCL 20 MG TAB PO SCH (17:28)
[2017-11-11 06:54] VITALS: BP 99/55
== END 2017-11-11 13:25 | disposition home or self-care (01) | DRG 884 ==
LOC: EDUNIT# → BBEH 10-27 09:35
PROVIDERS: ADMIT Psychiatry & Neurology Psychiatry; ATTEND Psychiatry & Neurology Psychiatry
DX: F53 Mental and behavioral disorders associated with the puerperium, not elsewhere classified (principal); F31.5 Bipolar disorder, current episode depressed, severe, with psychotic features; E87.1 Hypo-osmolality and hyponatremia; Z88.2 Allergy status to sulfonamides; Z63.0 Problems in relationship with spouse or partner; Z63.8 Other specified problems related to primary support group
CPT/HCPCS: 80305; G0480; J1630